=== PATIENT | female | born 1990 | race Caucasian/White ===

== ENCOUNTER 2019-03-13 05:02 | Day surgery (SDC) | payer OTHER ==
[2019-03-10 14:52] VITALS: BMI 47.7
[2019-03-13] MEDS ORDERED: KETOROLAC TROMETHAMINE 30 MG/1 ML VIAL ONE (08:12)
[2019-03-13] MEDS ORDERED: MIDAZOLAM HCL 2 MG/2 ML SINGLE DOSE VIAL ONE (08:25)
[2019-03-13] MEDS ORDERED: PROPOFOL 20 ML ONE ×2 (08:28→09:13)
[2019-03-13] MEDS ORDERED: ROCURONIUM BROMIDE 50 MG/5 ML SYRINGE ONE (08:29)
[2019-03-13] MEDS ORDERED: SUCCINYLCHOLINE CHLORIDE 200 MG/10 ML SYRINGE ONE (08:30)
[2019-03-13] MEDS ORDERED: IBUPROFEN 400 MG TABLET (FP) PO PRN (09:58)
[2019-03-13] MEDS ORDERED: ACETAMINOPHEN 325 MG TABLET (FP) PO PRN (09:58)
--- NOTE | 2019-03-13 09:58 | HP ---
History & Physical Update - History History: No Change - Physical Physical: No Change - Assessment Assessment: No Change - Plan Plan: No Change (No change in HP)
--- NOTE | 2019-03-13 10:02 | OP ---
Operative Note - Note: Operative Date: 03/13/19 Pre-Operative Diagnosis: Endometrial polyp. menorrhaghia. submucosal myomas Operation: Hysteroscopic myomectomy. Suction DC Findings: Numerous myomas and endo polyps menstral blood obsuring Post-Operative Diagnosis: Same as Pre-op Surgeon: Mary Wilson Anesthesia: General Estimated Blood Loss (mls): 150 Operative Report Dictated: Yes
[2019-03-13] MEDS ORDERED: PROMETHAZINE HCL 25 MG/1 ML VIAL IVPB PRN (10:14)
[2019-03-13] MEDS ORDERED: ONDANSETRON 4 MG/2 ML VIAL IVPUSH PRN (10:14)
[2019-03-13] MEDS ORDERED: oxyCODONE HCL 5 MG TABLET PO PRN (10:14)
[2019-03-13] MEDS ORDERED: LACTATED RINGERS SOLUTION 1,000 ML IV SCH (10:15)
[2019-03-13] MEDS ORDERED: IBUPROFEN 400 MG TABLET (FP) PO ONE (10:48)
--- NOTE | 2019-03-13 11:55 | OP ---
DATE OF OPERATION: 03/13/2019 PREOPERATIVE DIAGNOSIS: Anemia, menorrhagia, submucosal myomas, and endometrial polyps. OPERATION: Hysteroscopic myomectomy, suction dilation and curettage. POSTOPERATIVE DIAGNOSIS: Anemia, menorrhagia, submucosal myomas, and endometrial polyps. SURGEON: Mary Wilson MD ANESTHESIA: General. DESCRIPTION OF PROCEDURE: Patient was taken to the operating room. Placed in dorsal lithotomy position. Prepped and draped in the usual sterile fashion. Time-out was performed in accordance with hospital regulation. Speculum was placed in the vagina. Anterior lip of the cervix was grasped with a single-tooth tenaculum. Cervix then dilated to accommodate the operative hysteroscope. Operative hysteroscope was inserted and visualization revealed numbers menstrual material and also cautery was then used to cut the endometrium, and submucosal myoma was discovered. Numbers coagulation and cutting of the submucosal myoma was done and endometrial polyps all removed. Suction dilation and curettage was done many times during the procedure in between the cautery and cutting of the submucosal myoma. The endometrial cavity appeared to be irregular noted with myomas and polyps. Hemostasis was achieved. EBL probably about 100 mL. MARY WILSON M.D. [id number]
[2019-03-13 12:20] VITALS: BP 117/71; PULSE 69; TEMP 98.6
== END 2019-03-13 12:22 | disposition home or self-care (01) ==
LOC: JASU-SURG 05:02
PROVIDERS: ATTEND Obstetrics & Gynecology
PROC: 0UDB7ZX Extraction of Endometrium, Via Natural or Artificial Opening, Diagnostic (ICD-10-PCS; 2019-03-13)
PROC: 0UJD8ZZ Inspection of Uterus and Cervix, Via Natural or Artificial Opening Endoscopic (ICD-10-PCS; 2019-03-13)
PROC: 0UB98ZZ Excision of Uterus, Via Natural or Artificial Opening Endoscopic (ICD-10-PCS; principal; 2019-03-13 08:00)
PROC: 0UB97ZX Excision of Uterus, Via Natural or Artificial Opening, Diagnostic (ICD-10-PCS; 2019-03-13 08:00)
DX: D64.9 Anemia, unspecified (principal); N92.0 Excessive and frequent menstruation with regular cycle; D25.0 Submucous leiomyoma of uterus; N84.0 Polyp of corpus uteri
CPT/HCPCS: 86850; 86900; 86901; 94760

== ENCOUNTER 2021-10-27 06:00 | Inpatient (IN) | payer OTHER ==
[~2021-10-27 06:00] MED LIST: CITRIC ACID/SODIUM CITRATE 30 ML UNIT-DOSE CUP PO ONE; ELECTROLYTE-148 SOLN 1,000 ML IV ONE
[2021-10-27] MEDS ORDERED: ELECTROLYTE-148 SOLN 1,000 ML IV SCH (06:30)
[2021-10-27 06:41] VITALS: BMI 47.6
[2021-10-27] MEDS ORDERED: morphine SULFATE/PF 1 MG/2 ML (2cc Syringe - QUVA) ONE (09:14)
[2021-10-27] MEDS ORDERED: METHYLERGONOVINE MALEATE 0.2 MG/1 ML AMP IM PRN (09:34)
[2021-10-27] MEDS ORDERED: ACETAMINOPHEN 325 MG TABLET (FP) PO PRN (09:34)
[2021-10-27] MEDS ORDERED: BENZOCAINE 20% 57 GM BOTTLE TP PRN (09:35)
[2021-10-27] MEDS ORDERED: WITCH HAZEL 50% (TUCKS) 40 PAD/JAR PAD TP PRN (09:35)
[2021-10-27] MEDS ORDERED: IBUPROFEN 800 MG/8 ML IJ IVPB PRN (09:35)
[2021-10-27] MEDS ORDERED: SENNOSIDES/DOCUSATE COMBO (SENNA PLUS) TABLET (UD) PO PRN (09:35)
[2021-10-27] MEDS ORDERED: morphine SULFATE/PF 1 MG/2 ML (2cc Syringe - QUVA) SPIN ONE (09:52)
[2021-10-27] MEDS ORDERED: PHENYLEPHRINE HCL 10 MG/1 ML SINGLE DOSE VIAL ONE (10:47)
[2021-10-27] MEDS ORDERED: ONDANSETRON 4 MG/2 ML VIAL ONE (10:47)
[2021-10-27] MEDS ORDERED: ceFAZolin SODIUM 1 GM VIAL ONE (10:47)
[2021-10-27] MEDS ORDERED: KETOROLAC TROMETHAMINE 30 MG/1 ML VIAL ONE (10:47)
[2021-10-27] MEDS ORDERED: OXYTOCIN 10 UNITS/ML VIAL ONE (10:47)
[2021-10-27] MEDS: OXYTOCIN 20 UNITS in 0.9% NS 20 UNIT/1,000 ML INFUS.BAG IV SCH ×2 (11:15→20:30)
[2021-10-27] MEDS ORDERED: OXYTOCIN 20 UNITS in 0.9% NS 20 UNIT/1,000 ML INFUS.BAG IV ONE (11:15)
[2021-10-27] MEDS ORDERED: ACETAMINOPHEN INJECTION 100 ML IVPB ONE (11:17)
[2021-10-27] MEDS ORDERED: ONDANSETRON 4 MG/2 ML VIAL IVPUSH PRN ×2 (11:17)
[2021-10-27] MEDS ORDERED: ACETAMINOPHEN 1000 MG/100 ML BAG IVPB ONE (11:21)
[2021-10-27 11:25] LABS: CORD PCO2 57.9 mmHg (30-78); CORD pH 7.253 (7.14-7.44)
[2021-10-27 11:28] LABS: CORD BASE EXCESS -5.3 mmol/L (0-2); CORD HCO3 19.4 mmHg (20-29); CORD PCO2 35.4 mmHg (30-78); CORD pH 7.357 (7.14-7.44)
[2021-10-27] MEDS: FERROUS SO4 325 MG TABLET (FP) PO SCH ×2 (12:31→18:37)
[2021-10-27] MEDS: PRENATAL VITAMINS W/ FOLIC ACID TABLET (FP) PO SCH (12:32)
[2021-10-28 08:16] LABS: BASO % 0.1 % (0-2.0); EOS % 0.4 % (0-4.5); HEMOGLOBIN 11.9 GM/dL (10.7-15.3); LYMPH % 10.7 % (8-40); MCH 31.9 pg (25.7-33.7); MCHC 34.1 g/dl (32.0-36.0); MEAN CELL VOLUME 93.6 fl (80-96); MEAN PLT VOLUME 9.7 fl (7.5-11.1); NEUT % 81.8 % (42.8-82.8); PLATELET COUNT 155 10^3/uL (134-434); RBC 3.74 M/mm3 (3.60-5.2); WHITE BLOOD COUNT 11.4 K/mm3 (4.0-10.0)
[2021-10-28] MEDS ORDERED: BISACODYL 10 MG SUPP.RECT RC PRN (09:34)
[2021-10-28] MEDS: ELECTROLYTE-148 SOLN 1,000 ML IV SCH ×2 (09:41→15:57)
[2021-10-28] MEDS: FERROUS SO4 325 MG TABLET (FP) PO SCH ×2 (09:48→17:05)
[2021-10-28] MEDS: PRENATAL VITAMINS W/ FOLIC ACID TABLET (FP) PO SCH (09:48)
[2021-10-28] MEDS: SIMETHICONE 80 MG TAB.CHEW (FP) PO PRN ×2 (13:02→21:12)
[2021-10-28] MEDS: IBUPROFEN 600 MG TABLET (FP) PO PRN ×2 (13:02→21:11)
[2021-10-28] MEDS: LACTATED RINGERS SOLUTION 1,000 ML IV SCH (15:58)
[2021-10-28] MEDS ORDERED: oxyCODONE HCL 5 MG TABLET PO PRN ×2 (21:34)
[2021-10-29] MEDS: FERROUS SO4 325 MG TABLET (FP) PO SCH ×2 (09:16→17:50)
[2021-10-29] MEDS: PRENATAL VITAMINS W/ FOLIC ACID TABLET (FP) PO SCH (09:16)
[2021-10-29] MEDS: SIMETHICONE 80 MG TAB.CHEW (FP) PO PRN ×2 (12:42→21:52)
[2021-10-29] MEDS: IBUPROFEN 600 MG TABLET (FP) PO PRN ×2 (12:42→21:52)
[2021-10-29] MEDS: ELECTROLYTE-148 SOLN 1,000 ML IV SCH (20:07)
[2021-10-29] MEDS: OXYTOCIN 20 UNITS in 0.9% NS 20 UNIT/1,000 ML INFUS.BAG IV SCH (20:07)
[2021-10-29] MEDS: LACTATED RINGERS SOLUTION 1,000 ML IV SCH (20:07)
[2021-10-30 07:08] LABS: BASO % 0.3 % (0-2.0); EOS % 1.8 % (0-4.5); HEMATOCRIT 30.2 % (32.4-45.2); HEMOGLOBIN 10.8 GM/dL (10.7-15.3); LYMPH % 22.3 % (8-40); MCH 33.5 pg (25.7-33.7); MCHC 35.8 g/dl (32.0-36.0); MEAN CELL VOLUME 93.6 fl (80-96); MEAN PLT VOLUME 9.2 fl (7.5-11.1); MONO % 10.9 % (3.8-10.2); NEUT % 64.7 % (42.8-82.8); PLATELET COUNT 185 10^3/uL (134-434); RBC 3.23 M/mm3 (3.60-5.2); RDW 13.2 % (11.6-15.6); WHITE BLOOD COUNT 7.6 K/mm3 (4.0-10.0)
[2021-10-30] MEDS: FERROUS SO4 325 MG TABLET (FP) PO SCH (07:49)
[2021-10-30] MEDS: PRENATAL VITAMINS W/ FOLIC ACID TABLET (FP) PO SCH (09:25)
[2021-10-30 09:53] VITALS: BP 125/69; PULSE 68; TEMP 97.5
== END 2021-10-30 14:40 | disposition home or self-care (01) | DRG 788 ==
LOC: JLDR 06:00 → J3W 13:20
PROVIDERS: ADMIT Obstetrics & Gynecology; ATTEND Obstetrics & Gynecology
PROC: 10D00Z1 Extraction of Products of Conception, Low, Open Approach (ICD-10-PCS; principal; 2021-10-27)
DX: O32.1XX0 Maternal care for breech presentation, not applicable or unspecified (principal); Z3A.39 39 weeks gestation of pregnancy; Z37.0 Single live birth
CPT/HCPCS: 36415; 36600; 82803; 85025; 88305-TC; 88307-TC

== ENCOUNTER 2021-11-02 10:14 | Emergency (ER) | payer OTHER ==
[2021-11-02 10:31] VITALS: BP 134/92; PULSE 97; BMI 46.0
[2021-11-02] MEDS ORDERED: ONDANSETRON 4 MG/2 ML VIAL IVPUSH ONE (10:48)
[2021-11-02] MEDS ORDERED: SODIUM CHLORIDE 1,000 ML IV STA (10:48)
[2021-11-02] MEDS ORDERED: ONDANSETRON 4 MG/2 ML VIAL ONE (11:14)
[2021-11-02 11:52] LABS: BASO % 0.6 % (0-2.0); EOS % 2.8 % (0-4.5); HEMATOCRIT 34.8 % (32.4-45.2); HEMOGLOBIN 12.1 GM/dL (10.7-15.3); LYMPH % 21.9 % (8-40); MCH 32.6 pg (25.7-33.7); MCHC 34.7 g/dl (32.0-36.0); MEAN CELL VOLUME 93.9 fl (80-96); MEAN PLT VOLUME 8.5 fl (7.5-11.1); MONO % 12.9 % (3.8-10.2); NEUT % 61.8 % (42.8-82.8); PLATELET COUNT 301 10^3/uL (134-434); RBC 3.71 M/mm3 (3.60-5.2); WHITE BLOOD COUNT 6.1 K/mm3 (4.0-10.0)
[2021-11-02 12:02] LABS: EPI CELLS 8 /uL (0-25.1); HYALINE CASTS 0 /uL (0-3.1); URINE APPEARANCE CLEAR; URINE BACTERIA 44 /uL (0-1359); URINE BILIRUBIN NEGATIVE (NEGATIVE); URINE COLOR YELLOW; URINE GLUCOSE (UA) NEGATIVE (NEGATIVE); URINE KETONE NEGATIVE (NEGATIVE); URINE LEUK ESTERASE 2+ (NEGATIVE); URINE NITRITE NEGATIVE (NEGATIVE); URINE PROTEIN NEGATIVE (NEGATIVE); URINE RBC 60 /uL (0-23.9); URINE UROBILINOGEN 0.2 mg/dL (0.2-1.0); URINE WBC 12 /uL (0-25.8)
[2021-11-02 12:10] LABS: ALBUMIN 2.7 g/dl (3.4-5.0); BLOOD UREA NITROGEN 10.1 mg/dL (7-18); CALCIUM 9.2 mg/dL (8.5-10.1)
[2021-11-02 12:12] LABS: CREATININE 0.6 mg/dL (0.55-1.3)
[2021-11-02 12:15] LABS: BILIRUBIN,TOTAL 0.3 mg/dL (0.2-1); TOT PROT 6.7 g/dl (6.4-8.2)
[2021-11-02 12:47] VITALS: TEMP 98.3
[2021-11-03 14:07] LABS: SARS-CoV-2 NAA Not Detected (Not Detected)
== END 2021-11-02 13:26 | disposition home or self-care (01) ==
LOC: JER 10:14
PROC: 3E033GC Introduction of Other Therapeutic Substance into Peripheral Vein, Percutaneous Approach (ICD-10-PCS; principal; 2021-11-02)
DX: R68.83 Chills (without fever) (principal)
CPT/HCPCS: 36415; 71046-TC-FY; 80053; 81003; 83690; 85025; 87086; 99284-25; C9803-CS; U0003; U0005

== ENCOUNTER 2022-01-10 21:31 | Emergency (ER) | payer OTHER ==
[2022-01-10 21:38] VITALS: BP 142/93; PULSE 96; TEMP 98.4; BMI 45.7
== END 2022-01-10 23:33 | disposition home or self-care (01) ==
LOC: JERFT 21:31 → JER 21:31 → JERFT 23:33
DX: K04.7 Periapical abscess without sinus (principal)
CPT/HCPCS: 99283-25

== ENCOUNTER 2022-01-24 14:28 | Emergency (ER) | payer OTHER ==
[2022-01-24 14:50] VITALS: BP 120/76; PULSE 92; TEMP 98.4; BMI 45.7
[2022-01-24] MEDS ORDERED: ONDANSETRON 4 MG/2 ML VIAL IVPUSH ONE (16:48)
[2022-01-24] MEDS ORDERED: ACETAMINOPHEN 1000 MG/100 ML BAG IVPB ONE (16:48)
[2022-01-24] MEDS ORDERED: SODIUM CHLORIDE 1,000 ML IV STA (16:48)
[2022-01-24] MEDS ORDERED: ONDANSETRON 4 MG/2 ML VIAL ONE (17:21)
[2022-01-24] MEDS ORDERED: ACETAMINOPHEN INJECTION 100 ML IVPB ONE (17:21)
[2022-01-24 17:54] LABS: PH,URINE 6.5 (5.0-8.0); URINE APPEARANCE CLEAR; URINE BILIRUBIN NEGATIVE (NEGATIVE); URINE COLOR YELLOW; URINE GLUCOSE (UA) NEGATIVE (NEGATIVE); URINE KETONE NEGATIVE (NEGATIVE); URINE LEUK ESTERASE NEGATIVE (NEGATIVE); URINE NITRITE NEGATIVE (NEGATIVE); URINE PROTEIN NEGATIVE (NEGATIVE); URINE UROBILINOGEN 0.2 mg/dL (0.2-1.0)
[2022-01-24 17:56] LABS: HCG,QUALITATIVE URINE Negative
[2022-01-24 18:04] LABS: ALBUMIN 3.8 g/dl (3.4-5.0); BLOOD UREA NITROGEN 9.5 mg/dL (7-18); CALCIUM 9.4 mg/dL (8.5-10.1)
[2022-01-24 18:07] LABS: CREATININE 0.6 mg/dL (0.55-1.3)
[2022-01-24 18:09] LABS: BILIRUBIN,TOTAL 0.6 mg/dL (0.2-1); TOT PROT 8.4 g/dl (6.4-8.2)
[2022-01-24 19:58] LABS: BASO % 0.7 % (0-2.0); EOS % 0.8 % (0-4.5); HEMOGLOBIN 13.9 GM/dL (10.7-15.3); LYMPH % 31.8 % (8-40); MCH 31.2 pg (25.7-33.7); MEAN CELL VOLUME 91.7 fl (80-96); NEUT % 56.7 % (42.8-82.8); PLATELET COUNT 281 10^3/uL (134-434); RBC 4.47 M/mm3 (3.60-5.2); RDW 12.8 % (11.6-15.6); WHITE BLOOD COUNT 9.8 K/mm3 (4.0-10.0)
== END 2022-01-24 22:15 | disposition home or self-care (01) ==
LOC: JER 14:28
DX: R10.9 Unspecified abdominal pain (principal)
CPT/HCPCS: 36415; 74176-TC; 80053; 81003; 83690; 84703; 85025; 87086; 99284-25

== ENCOUNTER 2022-03-02 15:06 | Emergency (ER) | payer OTHER ==
[2022-03-02 15:26] VITALS: BP 131/74; PULSE 115; TEMP 98.9; BMI 46.7
== END 2022-03-02 20:14 | disposition home or self-care (01) ==
LOC: JER 15:06
DX: R21 Rash and other nonspecific skin eruption (principal); R20.2 Paresthesia of skin
CPT/HCPCS: 99281-25